=== PATIENT | female | born 1950 | race Caucasian/White ===

== ENCOUNTER → 2016-12-30 | Outpatient (CLI) | payer BC ==
[~2016-12-30] MED LIST: OXYC-57 PO
--- NOTE | 2016-12-30 13:45 | MAMMOGRAPHY REPORT ---
BILATERAL DIGITAL SCREENING MAMMOGRAM WITH CAD: 12/30/2016 CLINICAL HISTORY: Routine screening. Patient has no complaints. TECHNIQUE: Current study was also evaluated with a Computer Aided Detection (CAD) system. Bilatera l CC and MLO views were obtained. COMPARISON: Comparison is made to exams dated: 10/23/2014 mammogram, 09/13/2012 mammogram, and 04/05 mammogram - [facility]. BREAST COMPOSITION: The tissue of both breasts is heterogeneously dense, which may obscure small ma sses. FINDINGS: No suspicious masses, calcifications, or areas of architectural distortion are noted in e ither breast. There has been no significant interval change compared to prior exams. Scattered bila teral benign-appearing calcifications are not significant changed. Asymmetry seen within the left l ateral breast on the cc view is stable dating back to at least the 2006 exam. IMPRESSION: ACR BI-RADS CATEGORY 2: BENIGN There is no mammographic evidence of malignancy. A 1 year screening mammogram is recommended. The p atient will receive written notification of the results. Approximately 10% of breast cancers are not detected with mammography. A negative mammographic repor t should not delay biopsy if a clinically suggestive mass is present. Tracee Voss M.D. ah/:12/30/2016 10:48:53 Roading Engineer: Claire MORGAN(Ryder)(M), [facility] letter sent: Normal 1/2 BI-RADS Code: ACR BI-RADS Category 2: Benign
== END | disposition home or self-care (01) ==
LOC: C.MAMM 10:31
PROVIDERS: ATTEND Family Medicine
DX: Z12.31 Encounter for screening mammogram for malignant neoplasm of breast (principal)

== ENCOUNTER 2017-02-21 17:20 | Emergency (ER) | payer BC ==
[~2017-02-21] VITALS: Ht 157.5 cm; Wt 59.2 kg
[2017-02-21 17:33] VITALS: TEMP 36.5; Ht 157.5 cm; Wt 59.2 kg
[2017-02-21] MEDS ORDERED: OXYCODONE/ACETAMINOPHEN 5-325 TAB PO ONE (17:45)
--- NOTE | 2017-02-21 18:19 | DIAGNOSTIC IMAGING REPORT ---
LEFT WRIST MIN 3 VIEWS ROUTINE CLINICAL HISTORY: FALL trauma. Pain. COMPARISON: None. DISCUSSION: Severe degenerative change first carpometacarpal joint. No well-defined acute bony abnormality at that site. Linear fracture distal radius extending to the articular services. No evidence of dislocation. Small joint effusion.. Moderate soft tissue edema IMPRESSION: Linear nondisplaced fracture distal radius. Electronically signed by: Nhan Velasquez M.D. 02/21/2017 6:17 PM Dictated Date/Time: 02/21/2017 6:15 PM
[2017-02-21] MEDS ORDERED: OXYC-57 PO (18:42)
--- NOTE | 2017-02-21 18:43 | EMERGENCY ROOM VISIT NOTE ---
ED Visit Note First contact with patient: 17:38 Chief Complaint: Fell, Hurt LEFT Wrist History of Present Illness: Patient is a 66-year-old female who presents the emergency Department this evening for evaluation of her LEFT wrist injury. She reports that she was walking her dog on a long leash when her dog took off running and pulled her forward causing her to fall forward. She caught herself on an outstretched LEFT hand resulting in immediate pain in injury. She reports increasing pain into the distal LEFT wrist. She denies any numbness or tingling into the distal tremor. The patient rates her current discomfort as an 8/10. She is tried nothing bspb-ttz-deuzazp for her symptoms to this point. She denies any associated finger pain, hand pain, forearm pain, elbow pain, or shoulder pain. She denies striking her head during the fall. Medications: Reviewed and discussed with the patient. Allergies: No known allergies. PMH: No pertinent past medical history. SHx: Patient is a 66-year-old female who lives locally. ROS: All pertinent positive and negative review of systems are appropriately documented in the History of Present Illness. Physical Exam: VITAL SIGNS - Vital signs and nursing notes were reviewed. GENERAL - 66-year-old female appearing her stated age and in noticeable discomfort throughout the exam. MUSCULOSKELETAL - Active ROM of the LEFT wrist was limited in limited in all directions. Moderate edema noted to the distal radius. No palpable deformities. Moderate tenderness over the RADIAL styloid process. Mild tenderness with squeezing the forearm. No tenderness extending into the carpals. No point- tenderness over the anatomic snuffbox. Moderate pain elicited with supination and pronation of the forearm. NEUROLOGIC - SENSORY: Spinothalamic tract was found to be intact with ability to discriminate sharp versus dull sensation at the level of the LEFT elbow down to the fingertips. No sensory deficits of the dorsal column were appreciated utilizing light touch for evaluation. VASCULAR - Capillary refill was brisk. +3/5 radial pulse palpated. IMAGING: LEFT WRIST MIN 3 VIEWS ROUTINE CLINICAL HISTORY: FALL trauma. Pain. COMPARISON: None. DISCUSSION: Severe degenerative change first carpometacarpal joint. No well-defined acute bony abnormality at that site. Linear fracture distal radius extending to the articular services. No evidence of dislocation. Small joint effusion.. Moderate soft tissue edema IMPRESSION: Linear nondisplaced fracture distal radius. ED Course: Patient was seen and evaluated by myself. Patient was provided an ice pack for comfort. Patient was provided one Percocet for their complaint of pain. X-rays were obtained of the affected wrist. Imaging results as above. Images were discussed and reviewed with the patient who acknowledges understanding. Patient was placed in an Ortho-Glass splint for comfort. She was provided an arm sling for comfort. The patient remain neurovascular intact pre-and post-splinting. Patient was encouraged on following up with orthopedic surgery for definitive management. She was educated on worrisome symptoms for return visit to the emergency department. Patient discharged home in good condition. In the evaluation and treatment of this patient, the following differential diagnoses were considered: Wrist Sprain, Wrist Fracture, Wrist Dislocation, Scapholunate Dissociation, Carpal Fracture, Metacarpal Fracture, Radial Styloid Process Fracture, Ulnar Styloid Process Fracture, or Carpal Tunnel Syndrome. Impression: LEFT Distal Radius Fracture, Fall Discharge Instructions: You have been treated in the Emergency Department for a LEFT Distal Radius Fracture. You have received pain medicine in the emergency department which impairs your ability to operate a vehicle. It is illegal for you to drive after receiving these medicines. You have been prescribed Percocet to be used for pain control. This is a narcotic medication. You cannot drive or consume alcohol while on this medicine. This medicine should only be used for pain that cannot be controlled with usua-ark-dykbcmk pain medicines. For pain control, you can use the following yohy-uhy-nzvbszk medicines (if >12 yo): - Regular strength (325mg/tab) Tylenol (acetaminophen) 2 tabs every 4-6 hours as needed. Do not exceed 12 tablets in a 24 hour period. Avoid taking more than 4 grams (4000 mg) of Tylenol per day. This includes any other sources of acetaminophen you may take on a regular basis. - Regular strength (200 mg/tab) Advil (ibuprofen) 1-2 tabs every 4-6 hours as needed. Do not exceed a dose of 3200 mg per day. If this is a recent injury (<24 hrs), ice can be applied to the area of pain for the first 3 days to help decrease pain and inflammation. You have been provided the number for an Orthopaedic Surgeon. You should call this number as soon as possible to establish a follow-up visit from today's Emergency Department visit. Keep the brace/splint in place until evaluated by Orthopedics. Return to the Emergency Department if your current symptoms worsen despite treatment course outlined above, or if you develop any of the following symptoms : intractable pain despite aforementioned treatment course or new onset of numbness or tingling of the fingers. Current/Historical Medications Scheduled PRN Oxycodone/Acetaminophen 5MG/325MG (Percocet 5MG/325MG), 1-2 TABS PO Q4 PRN for Pain Allergies Coded Allergies: No Known Allergies (Unverified , 02/21/17) Vital Signs Date Time Temp Pulse Resp B/P Pulse Ox O2 Delivery O2 Flow Rate FiO2 02/21/17 19:04 72 18 161/92 96 02/21/17 17:33 36.5 83 18 187/92 97 Room Air Medications Administered Medications (Trade) Dose Ordered Sig/Paxton Route Start Time Stop Time Status Last Admin Dose Admin Oxycodone/ Acetaminophen (Percocet 5-325mg Tab) 1 tab NOW ONCE PO 02/21/17 17:45 02/21/17 17:46 DC 02/21/17 17:52 1 TAB Departure Information Impression Primary Impression: Distal radius fracture, left Additional Impression: Fall Dispostion Home / Self-Care Condition GOOD Prescriptions Oxycodone/Acetaminophen 5MG/325MG (PERCOCET 5MG/325MG) Tab 1-2 TABS PO Q4 Y for Pain, #20 TAB For Initial Treatment Prov: Mars Lawson PA-C 02/21/17 Referrals Shay Meneses M.D. (PCP) Justin Garg M.D. Patient Instructions My [facility] Additional Instructions You have been treated in the Emergency Department for a LEFT Distal Radius Fracture. You have received pain medicine in the emergency department which impairs your ability to operate a vehicle. It is illegal for you to drive after receiving these medicines. You have been prescribed Percocet to be used for pain control. This is a narcotic medication. You cannot drive or consume alcohol while on this medicine. This medicine should only be used for pain that cannot be controlled with qljp-zsm-uxxuiek pain medicines. For pain control, you can use the following iqyf-del-dlovmyv medicines (if >12 yo): - Regular strength (325mg/tab) Tylenol (acetaminophen) 2 tabs every 4-6 hours as needed. Do not exceed 12 tablets in a 24 hour period. Avoid taking more than 4 grams (4000 mg) of Tylenol per day. This includes any other sources of acetaminophen you may take on a regular basis. - Regular strength (200 mg/tab) Advil (ibuprofen) 1-2 tabs every 4-6 hours as needed. Do not exceed a dose of 3200 mg per day. If this is a recent injury (<24 hrs), ice can be applied to the area of pain for the first 3 days to help decrease pain and inflammation. You have been provided the number for an Orthopaedic Surgeon. You should call this number as soon as possible to establish a follow-up visit from today's Emergency Department visit. Keep the brace/splint in place until evaluated by Orthopedics. Return to the Emergency Department if your current symptoms worsen despite treatment course outlined above, or if you develop any of the following symptoms : intractable pain despite aforementioned treatment course or new onset of numbness or tingling of the fingers. Problem Qualifiers Primary Impression: Distal radius fracture, left Encounter type: initial encounter Fracture type: closed Fracture morphology : other intra-articular Qualified Codes: S52.572A - Other intraarticular fracture of lower end of left radius, initial encounter for closed fracture Additional Impression: Fall Encounter type: initial encounter Qualified Codes: W19.XXXA - Unspecified fall, initial encounter
[2017-02-21 19:04] VITALS: BP 161/92; PULSE 72; O2SAT 96
== END 2017-02-21 19:06 | disposition home or self-care (01) ==
LOC: C.EDB 17:21 → C.EDD 19:06
DX: S52.572A Other intraarticular fracture of lower end of left radius, initial encounter for closed fracture (principal); W19.XXXA Unspecified fall, initial encounter

== ENCOUNTER → 2017-11-21 | Outpatient (CLI) | payer BC, OTHER | END | disposition home or self-care (01) | LOC: C.RDSM 11:02 | PROVIDERS: ATTEND Physical Medicine & Rehabilitation Sports Medicine | DX: M25.551 Pain in right hip (principal) ==

== ENCOUNTER → 2018-02-20 | Outpatient (CLI) | payer OTHER ==
[~2018-02-20] MED LIST changes: +FLUO5CRE TOP; +WARF2TAB PO
--- NOTE | 2018-02-20 12:30 | DIAGNOSTIC IMAGING REPORT ---
CHEST 2 VIEWS ROUTINE HISTORY: 67 years-old Female COUGH acute cough COMPARISON: None available TECHNIQUE: PA and lateral views of the chest FINDINGS: Cardiomediastinal and hilar silhouettes are within normal limits. There is no pneumothorax, pleural effusion, focal airspace consolidation or overt pulmonary edema. The bones of the chest appear grossly intact. Degenerative changes are seen within the shoulders and spine. IMPRESSION: No acute process. The above report was generated using voice recognition software. It may contain grammatical, syntax or spelling errors. Electronically signed by: Pete Irvin M.D. 02/20/2018 12:29 PM Dictated Date/Time: 02/20/2018 12:28 PM
== END | disposition home or self-care (01) ==
LOC: C.RADBC 11:10
PROVIDERS: ATTEND Nurse Practitioner Family
DX: Z01.818 Encounter for other preprocedural examination (principal); R05 Cough

== ENCOUNTER 2018-03-01 05:03 | Inpatient (IN) | payer OTHER ==
[2018-02-10 11:37] VITALS: BMI 26.0
--- NOTE | 2018-02-10 11:53 | PAT Medication Instructions ---
Service Date Feb 10, 2018. Current Home Medication List Fluorouracil (Topical) (Efudex), 1 APPLN TOP DAILY Medication Instructions For Your Scheduled Surgery - Hold the following medications 24 hours prior to surgery: Fluorouracil (Topical) (Efudex), 1 APPLN TOP DAILY If you have any questions please call us at [phone] or [phone] or [phone]
[2018-02-10 12:30] LABS: BASO % 0.4 %; BASO ABS # 0.04 K/uL (0-0.2); EOS % 0.5 %; EOS ABS # 0.05 K/uL (0-0.5); HEMATOCRIT 41.8 % (37-47); HEMOGLOBIN 14.3 g/dL (12.0-16.0); IG# 0.01 K/uL (0.00-0.02); LYMPH % 24.8 %; LYMPH ABS # 2.36 K/uL (1.2-3.4); MEAN CELL VOLUME 92.1 fL (80-100); MEAN CORPUSCULAR HEMOGLOBIN 31.5 pg (25-34); MEAN CORPUSCULAR HGB CONC 34.2 g/dl (32-36); MEAN PLATELET VOLUME 10.2 fL (7.4-10.4); MONO % 7.3 %; MONO ABS # 0.69 K/uL (0.11-0.59); NEUT % 66.9 %; NEUT ABS # 6.36 K/uL (1.4-6.5); PLATELET COUNT 244 K/uL (130-400); RED CELL DISTRIBUTION WIDTH CV 12.9 % (11.5-14.5); RED CELL DISTRIBUTION WIDTH SD 43.7 fL (36.4-46.3); WHITE BLOOD COUNT 9.51 K/uL (4.8-10.8)
[2018-02-10 12:38] LABS: INR 0.9 (0.9-1.1); PTT PATIENT 24.8 SECONDS (21.0-31.0)
[2018-02-10 14:09] LABS: CALCIUM 9.1 mg/dl (8.5-10.1); CREATININE 0.81 mg/dl (0.60-1.20); POTASSIUM 4.2 mmol/L (3.5-5.1)
--- NOTE | 2018-02-10 15:39 | History and Physical ---
History & Physical Date of Service Feb 10, 2018. History & Physical CHIEF COMPLAINT: Right hip pain. HISTORY OF PRESENT ILLNESS: This 67-year-old female presents to the clinic today for preoperative history and physical. The patient has a longstanding history of significant right hip pain since approximately 2010, that increases when she transitions from a seated to a standing position when she walks uphill and is affecting her gait significantly states that over the past several months , she has gained 8 pounds because of her decreased activity level from the pain she is experiencing. PAST SURGICAL HISTORY: Colonoscopy and left breast lumpectomy. PAST MEDICAL HISTORY: Hyperlipidemia. FAMILY HISTORY: Mother, deep vein thrombosis, renal disease; father, heart failure; brother, hypertension. ALLERGIES: The patient has no known drug allergies. CURRENT MEDICATIONS: Ibuprofen 600 mg oral tablet 1 tab every 6 hours as needed for pain. SOCIAL HISTORY: The patient denies history of smoking or illicit drug use, states she consumes approximately 5 alcoholic beverages per week. PHYSICAL EXAMINATION: Skin: The patient's skin is normal in appearance. No open skin lesions or discharge. Eyes: Pupils are equal and reactive to light and accommodating. Extraocular movements are intact. Throat: Posterior oropharynx is clear without absence of edema, erythema or exudate. Cardiovascular exam: The patient has a regular rate and rhythm with no murmurs or gallops appreciated. Lungs: Auscultation of lung saleem reveals clear breath sounds throughout with no wheezing, rales or rhonchi. Abdomen is minimally obese, nondistended, nontender with normoactive bowel sounds. Extremities: Right hip, the patient has a positive log roll test, positive straight leg raise test. Negative Stinchfield test. She experiences pain with slightly internal rotation as well as with activity, abduction and adduction of the right lower extremity. She has no tenderness over the anterior lateral posterior hip. There is some mild crepitation with active passive range of motion. Otherwise, she is neurovascularly intact in the right lower extremity. KHOI test is 2-1/2 fists in the right lower extremity. Neurological exam: Cranial nerves 2-12 are intact. No motor or sensory deficit. Psychological/ general exam: The patient is alert and oriented x3 with proper grooming and hygiene. DIAGNOSES: Right hip osteoarthritis. PROCEDURE: Right total hip arthroplasty. RADIOGRAPHIC IMAGING: X-rays of the pelvis shows end-stage osteoarthritis, osteoarthritic changes in the right hip joint. PLAN: The patient is scheduled to undergo this procedure with Dr. Denys Knight at the [facility] on 03/01/18. Risks and complications of the surgery such as infection, bleeding, pain, scarring, nerve and blood vessel damage, weakness, wound problems, stiffness, incomplete relief of symptoms, heart attack, stroke, , fracture, hardware failure, blood clots, embolism were explained to patient. She understands and agrees. However , informed consent to perform the procedure was not obtained. During today's visit, she will sign the consent form with Dr. Knight on the day of surgery. We will also need to obtain preoperative medical clearance from the patient's primary care provider, Dr. Shay Meneses along with a preoperative EKG , CBC with diff, comprehensive metabolic panel, PT, INR, PTT, urinalysis with culture. The patient states she has a preoperative anesthesia clearance appointment at hospital today and will obtain necessary testing at that time. She states she has a walker and other postoperative hip devices that she borrowed from her friend. She will bring a walker with her on the day of surgery. I advised her that she will be provided with a prescription for physical therapy, prescription for Coumadin as well as a prescription for postoperative pain med that she will use upon discharge from the hospital. The patient states she will most likely have in-house home health physical therapy for 2 weeks and then start outpatient physical therapy after her 2-week followup. That follow up was scheduled with Reinaldo Avila on March 16 at 12:45. PDMP was checked today because in regards to prescribing a narcotic after the procedure no red flags were raised that would prevent us from prescribing this upon her discharge from the hospital. The patient was also instructed about classes that she can take in regards to hip and knee replacements at the hospital. She was instructed about the use of antibiotics for dental procedures after the joint arthroplasty and she was also provided with the paperwork to obtain a handicap placard for a 6-month period after the procedure. The patient verbalized understanding of all information provided at today's visit. Thanks for the care she has received and states if she has questions or concerns that should arise prior to her surgery date, she will contact the clinic accordingly.
[~2018-03-01] VITALS: Ht 157.5 cm; Wt 65.0 kg
[2018-03-01] VITALS (9 sets, daily range): BP systolic 104–151; BP diastolic 54–91; PULSE 60–78; TEMP 36.5–36.9; O2SAT 92–98; Ht 157.5 cm; Wt 65.0 kg
[~2018-03-01 05:03] MED LIST changes: -OXYC-57 PO; -WARF2TAB PO
[2018-03-01] MEDS ORDERED: LACTATED RINGER'S 1000ML IV SCH (06:00)
[2018-03-01] MEDS ORDERED: TRANEXAMIC ACID INJ 1,000 MG x 1 Bag Intra-Op IV SCH ×2 (06:00)
[2018-03-01] MEDS ORDERED: ROPIVACAINE 5MG/ML 30 ML 150 MG, BUPIVACAINE 0.5% MPF INJ 30 ML, EpINEphrine HCL INJ 0.... INFIL SCH ×8 (06:00)
[2018-03-01] MEDS ORDERED: CEFAZOLIN 2000MG IV PUSH 15 ML IV SCH (06:00)
[2018-03-01] MEDS ORDERED: ORTHO JOINT ANESTHETIC ONE (06:27)
[2018-03-01] MEDS ORDERED: POVIDONE-IODINE OP SOLN 30 ML BTL ONE (06:27)
--- NOTE | 2018-03-01 06:27 | History & Physical Bridge Note ---
H&P Re-Evaluation Bridge Note: I have examined the patient, reviewed the History & Physical and in the interval since the performance of the History & Physical I have noted the following changes of clinical significance: consent obtained.No changes noted
[2018-03-01] MEDS ORDERED: BUPIVACAINE 0.5 % 5 MG/1 ML PF 10ML VIAL ONE (06:29)
[2018-03-01] MEDS ORDERED: LIDOCAINE HCL 2% 2 ML VIAL (20MG/ML) ONE (06:37)
[2018-03-01] MEDS ORDERED: MIDAZOLAM HCL 1 MG/ML 2ML VIAL ONE (06:37)
[2018-03-01] MEDS ORDERED: PROPOFOL IV EMULSION 10 MG/ML 20 ML VIAL IV ONE ×2 (06:37→07:37)
[2018-03-01] MEDS ORDERED: FENTANYL CITRATE INJ 50 MCG/1 ML 2 ML VIAL ONE ×2 (06:37→08:43)
[2018-03-01] MEDS ORDERED: ONDANSETRON INJ 2 MG/ML 2 ML VIAL ONE ×2 (07:37→08:37)
[2018-03-01] MEDS ORDERED: EpHEDrine SULFATE 50MG/5ML SYR ONE (08:06)
--- NOTE | 2018-03-01 08:18 | [facility] Post Operative Brief Note ---
Immediate Operative Summary Operative Date Mar 01, 2018. Pre-Operative Diagnosis Right Hip Degenerative Joint Disease Post-Operative Diagnosis Same as Preop Procedure(s) Performed Right Total Hip Arthroplasty Uncemented Surgeon Dr. Knight Refinery Operator Alkylation Surgeon(s) Reinaldo Avila PA-C,Deon Stewart Fellow Estimated Blood Loss 200 ml Findings Consistent with Post-Op Diagnosis Fluids (cc crystalloids) 800cc Specimens A. Right Femoral Head Drains None Anesthesia Type General Complication(s) none Disposition Accompanied Pt To Recover: no Disposition: Recovery Room / PACU
[2018-03-01] MEDS ORDERED: HYDROmorphone INJ 2 MG/ML SYR/VIAL ONE (08:29)
[2018-03-01] MEDS ORDERED: HYDROmorphone INJ 0.5 MG/0.5 ML SYR ONE (08:43)
[2018-03-01] MEDS ORDERED: ALUMINUM/MAGNESIUM/SIMETH (MAALOX MAX) 30 ML UDC PO PRN (08:45)
[2018-03-01] MEDS ORDERED: MAGNESIUM HYDROXIDE SUSP 30 ML UDC PO PRN (08:45)
[2018-03-01] MEDS ORDERED: CEFAZOLIN IV 1,000 MG in DEXTROSE 5% 50ML 50 ML IV SCH (08:45)
[2018-03-01] MEDS ORDERED: BISACODYL 10 MG SUPP PR PRN (08:45)
[2018-03-01] MEDS ORDERED: MoRPHine SULFATE 2 MG/ML CARP IV PRN (08:45)
[2018-03-01] MEDS ORDERED: METOCLOPRAMIDE HCL INJ 5 MG/ML 2 ML VIAL IV PRN (08:45)
[2018-03-01] MEDS ORDERED: ONDANSETRON INJ 2 MG/ML 2 ML VIAL IV PRN ×2 (08:45→09:00)
[2018-03-01] MEDS ORDERED: OXYCODONE HCL IR 5 MG TAB (IMMEDIATE RELEASE) PO PRN (08:45)
[2018-03-01] MEDS ORDERED: D5W AND 1/2NSS + 20MEQ KCL 1,000 ML IV SCH ×2 (08:52→11:00)
[2018-03-01] MEDS ORDERED: KETOROLAC TROMETHAMINE 30 MG/ML VIAL ONE (08:54)
--- NOTE | 2018-03-01 08:59 | OPERATIVE REPORT ---
DATE OF OPERATION: 03/01/2018 SURGEON: Denys Knight MD ACADEMIC DIRECTOR: Terry. SECOND ACADEMIC DIRECTOR: BRANDON Avila PREOPERATIVE DIAGNOSIS: Osteoarthritis, right hip. POSTOPERATIVE DIAGNOSIS: Same. OPERATION PERFORMED: Noncemented right total hip replacement. SUMMARY OF IMPLANTS: Size 48 cup acetabular shell sector hole eliminator 6.5 x 25 screw, 32 x 48 neutral liner, one standard Tri-Lock size 1, +9 taper, 32 mm head. ESTIMATED BLOOD LOSS: 200 mL. CRYSTALLOID: 800 mL. DVT prophylaxis with Coumadin. PERIOPERATIVE SITUATION: Medically-cleared female with intractable hip pain with x-rays revealing end-stage disease with significant joint space narrowing. Leg lengths are unequal with this side being short about a centimeter. She does have some back curvature; so it is difficult to get leg lengths exactly. She understands this. DESCRIPTION OF PROCEDURE: The patient was properly identified, site verified, consent verified. 2 g of Ancef confirmed as being given. The patient was placed in right lateral decubitus position. The spinal was not working, so she was then generalized with an LMA. Once the hip was prepped and draped in usual routine fashion, a posterior approach to the hip was then made. Sharp dissection carried to skin and blunt dissection down to the fascia. This was incised under direct vision. The Charnley retractor was then placed. Once the fascia was opened, care taken to protect the sciatic nerve; it was palpated and visualized. It was not dissected. The short external rotators were then released. The capsule was then T'd and the hip was dislocated. The femoral neck was resected; resected to about a 0.5 cm to 3/4 cm above the lesser trochanter. Acetabular exposure was then obtained with a medial retractor and acetabular retractor and the superior sharp Hohmann retractor. Labrum was excised. The remaining capsule and pulvinar was excised. Serial reaming was carried up to a 48 and 48 cup impacted into excellent anteversion and inclination. Trial liner was then seated. The femur was then flexed and internally rotated. The proximal femur prepared with a hand box coverer, canal finder, lateralizing rasp, and serial broaching up to a size 1. The size 1 fit extremely well. Trial reduction with a +9 and a +5; gave the leg lengths better at +9. The hip was very stable. The hip was then dislocated. All trial implants were removed. The wound irrigated with Pulsavac, Betadine Pulsavac; hole eliminator seated, liner seated permanent head and stem seated. The hip reduced. Leg lengths were excellent. Stability was excellent. The wound was then irrigated with Betadine Pulsavac and closed with #2 Vicryl for the fascial layer, 2-0 Vicryl for the subcutaneous layer, and stainless steel clips for skin. Appropriate dressing applied and the patient was transferred to recovery room in satisfactory condition having tolerated the procedure well. Estimated blood loss again 200 mL. DVT prophylaxis with Coumadin. Pathology pending on bone. I attest to the content of the Intraoperative Record and any orders documented therein. Any exception s are noted below.
[2018-03-01] MEDS ORDERED: ATROPINE SULFATE 0.1 MG/ML 5ML SYR IV PRN (09:00)
[2018-03-01] MEDS: DOCUSATE SODIUM 100 MG CAP PO SCH ×2 (09:00→20:39)
[2018-03-01] MEDS ORDERED: HYDROmorphone INJ 2 MG/ML SYR/VIAL IV PRN (09:00)
[2018-03-01] MEDS ORDERED: EpHEDrine SULFATE INJ 50 MG/ML AMP IV PRN (09:00)
[2018-03-01] MEDS: PANTOprazole SOD 40 MG TAB PO SCH (09:00)
[2018-03-01] MEDS: MULTIVITAMIN TAB PO SCH (09:00)
[2018-03-01] MEDS ORDERED: FENTANYL CITRATE INJ 50 MCG/1 ML 2 ML VIAL IV PRN (09:00)
--- NOTE | 2018-03-01 09:06 | DIAGNOSTIC IMAGING REPORT ---
PELVIS 1 OR 2 VIEW ROUTINE CLINICAL HISTORY: s/p right DARIUS (AP pelvis only in pacu) hip replacement COMPARISON: 09/11/2014 DISCUSSION: Anatomic alignment post total right hip arthroplasty. Good contact between prosthetic and underlying bone. Expected soft tissue postoperative changes. IMPRESSION: Anatomic alignment posttotal right hip arthroplasty. The above report was generated using voice recognition software. It may contain grammatical, syntax or spelling errors. Electronically signed by: Nhan Velasquez M.D. 03/01/2018 9:05 AM Dictated Date/Time: 03/01/2018 9:04 AM
--- NOTE | 2018-03-01 09:19 | Anesthesiology Progress Note ---
Anesthesia Post Op Note Date & Time Mar 01, 2018 at 09:17 Vital Signs Pain Intensity: 4 Vital Signs Past 12 Hours Date Time Temp Pulse Resp B/P (MAP) Pulse Ox O2 Delivery O2 Flow Rate FiO2 03/01/18 09:10 81 16 117/62 96 Nasal Cannula 2 03/01/18 09:00 65 12 123/71 98 Nasal Cannula 2 03/01/18 08:50 72 12 130/66 97 Oxymask 10 03/01/18 08:40 70 19 174/82 100 Oxymask 10 03/01/18 08:33 36.7 62 12 158/85 100 Oxymask 10 03/01/18 05:26 36.9 76 20 151/91 97 Room Air Notes Mental Status: alert / awake / arousable, participated in evaluation Pt Amnestic to Procedure: Yes Nausea / Vomiting: adequately controlled Pain: adequately controlled Airway Patency, RR, SpO2: stable & adequate BP & HR: stable & adequate Hydration State: stable & adequate Neuraxial Anesthesia: was administered, sensory block resolved Anesthetic Complications: no major complications apparent Anesthetic Complications: Easy atraumatic placement of spinal with good return of CSF. Unfortunately, failed spinal intraop with conversion to GA with LMA. Full movement of legs and pt with pain on arrival to PACU. Pain responded well to narcotics and patient doing well. No other anesthetic complications.
[2018-03-01] MEDS ORDERED: MoRPHine SULFATE 4 MG/ML 1 ML CARP\\VIAL IV PRN (10:00)
[2018-03-01] MEDS ORDERED: PNEUMOCOCCAL POLYSACCHARIDES 25 MCG/0.5 ML VIAL/SYR IM. ONE (11:15)
[2018-03-01] MEDS ORDERED: PNEUMOCOCCAL ADMINISTRATION CHARGE ONE (11:15)
[2018-03-01] MEDS: FERROUS GLUCONATE 324 MG TAB PO SCH ×2 (12:58→18:04)
[2018-03-01] MEDS: KETOROLAC TROMETHAMINE 15 MG/ML VIAL IV. SCH ×3 (13:04→23:19)
[2018-03-01] MEDS: ACETAMINOPHEN 500 MG TAB PO SCH ×2 (13:05→21:49)
[2018-03-01] MEDS ORDERED: NURSING VERBAL MED ORDER ONE (13:30)
--- NOTE | 2018-03-01 13:31 | PROGRESS NOTE ---
DATE: 03/01/2018 Postop check status post right total replacement. The patient is doing well, has no major issues. She is sitting up, eating and drinking. Vital signs are stable. She is afebrile. She denies chest pain, shortness of breath, fever, chills, nausea, vomiting or headache. Wound dressing clean, dry and intact. Neurovascular check of femoral sciatic nerve is normal. Postop x-ray looks excellent. ASSESSMENT: Doing well. She ate well. She is drinking well. We will Hep-Lock IV. Mobilize. Continue postop care pathway. Start Coumadin.
[2018-03-01] MEDS ORDERED: TRANEXAMIC ACID INJ 1,000 MG in SODIUM CHLORIDE 0.9% 100ML 100 ML IV ONE (15:00)
[2018-03-01] MEDS ORDERED: WARFARIN SOD 5 MG TAB PO ONE (16:00)
[2018-03-01] MEDS: CEFAZOLIN IV 1,000 MG in SYRINGE 0 ML IV SCH ×2 (16:24→23:19)
[2018-03-01] MEDS ORDERED: SENNA 8.6 MG TAB PO SCH (21:00)
[2018-03-02 02:22] VITALS: BP 107/62; PULSE 69; TEMP 36.8; O2SAT 97
[2018-03-02] MEDS: KETOROLAC TROMETHAMINE 15 MG/ML VIAL IV. SCH ×2 (05:59→11:39)
[2018-03-02] MEDS: ACETAMINOPHEN 500 MG TAB PO SCH (05:59)
[2018-03-02] MEDS ORDERED: DEXAMETHASONE INJ 10 MG in SYRINGE 0 ML IV ONE (07:30)
--- NOTE | 2018-03-02 07:32 | PROGRESS NOTE ---
DATE: 03/02/2018 Postop day #1 status post right total hip replacement. The patient is doing well, has no issues. Denies chest pain, shortness of breath, fever, chills, nausea, vomiting or headache. Vital signs are stable. She is afebrile. Abdomen is soft, nontender. Calves nontender. Good femoral sciatic nerve function. Hip located. Leg lengths, good. ASSESSMENT: Doing well; a.m. labs pending. Will discharge today after PT, OT in the morning. Discharge on 4 mg Coumadin if INR is 1.5 or less and 2 mg if INR is greater than 1.5. Check INR on Tuesday. Follow up in 2 weeks for staple removal.
--- NOTE | 2018-03-02 07:38 | DISCHARGE SUMMARY ---
CHIEF COMPLAINT: Right hip pain. HISTORY OF PRESENT ILLNESS: The patient was admitted for elective right total hip replacement. Hospital course has been uneventful. She has done well. Pain is well managed. She is mobilizing well. PAST MEDICAL HISTORY AND PAST SURGICAL HISTORY: Remarkable for colonoscopy, left breast lumpectomy, history of hyperlipidemia. FAMILY HISTORY: DVT in her mother; renal disease in father; heart disease and heart failure in brother, and hypertension. ALLERGIES: None. PREADMISSION MEDICATIONS: Include ibuprofen. She will discontinue that and discharged on p.r.n. pain medication and Coumadin. Keep INR 1.8-2.2. Discharge on 4 mg Coumadin if INR is 1.5 or less and 2 mg if INR is greater than 1.5. Check INR on Tuesday. Postop x-rays look excellent. ASSESSMENT: Doing well status post right total hip replacement. Will discharge after PT, OT today. See Coumadin orders.
[2018-03-02 07:47] LABS: CALCIUM 8.4 mg/dl (8.5-10.1); CREATININE 0.7 mg/dl (0.60-1.20); POTASSIUM 4.3 mmol/L (3.5-5.1)
[2018-03-02 07:50] LABS: BASO % 0.1 %; BASO ABS # 0.02 K/uL (0-0.2); EOS % 0.1 %; EOS ABS # 0.02 K/uL (0-0.5); HEMATOCRIT 34.3 % (37-47); HEMOGLOBIN 11.1 g/dL (12.0-16.0); IG# 0.05 K/uL (0.00-0.02); LYMPH % 13.1 %; LYMPH ABS # 2.06 K/uL (1.2-3.4); MEAN CELL VOLUME 93.5 fL (80-100); MEAN CORPUSCULAR HEMOGLOBIN 30.2 pg (25-34); MEAN CORPUSCULAR HGB CONC 32.4 g/dl (32-36); MEAN PLATELET VOLUME 10.5 fL (7.4-10.4); MONO ABS # 1.73 K/uL (0.11-0.59); NEUT % 75.4 %; NEUT ABS # 11.84 K/uL (1.4-6.5); PLATELET COUNT 249 K/uL (130-400); RED CELL DISTRIBUTION WIDTH SD 44.3 fL (36.4-46.3); WHITE BLOOD COUNT 15.72 K/uL (4.8-10.8)
[2018-03-02 08:09] VITALS: BP 118/76; PULSE 64; TEMP 36.7; O2SAT 96
[2018-03-02] MEDS ORDERED: WARF2TAB PO (08:27)
[2018-03-02] MEDS ORDERED: OXYC-57 PO (08:27)
--- NOTE | 2018-03-02 08:32 | Discharge Instructions ---
Discharge Instructions Date of Service Mar 02, 2018. Admission Reason for Admission: Right Hip Osteoarthritis Discharge Discharge Diagnosis / Problem: Right hip s/p total hip replacement Discharge Goals Goal(s): Decrease discomfort, Improve function, Increase independence Activity Recommendations Activity Limitations: as noted below Lifting Limitations: gradually increase as tolerated May Resume Sexual Activity: after follow-up appointment Shower/Bathe: keep incision dry Driving or Machine Use: No driving until cleared by Dr. Knight Weightbearing Status: Right weightbearing (as tolerated) . Instructions / Follow-Up Instructions / Follow-Up New Medicine: * You will likely be taking one or more of these medicines: 1. Percocet - Take, as directed, when you need it, every four to six hours to control your pain. 2. Coumadin - Thins your blood to lessen the chance of forming a blood clot. The dose of this is different for each person and is based on your blood tests that are done twice a week. * The most common side effects of pain medicine and iron are nausea and constipation. If nausea or constipation is too much of a problem or if you have any questions about your new medicines or doses, call [facility] at . We will try to help you manage these issues. VERY IMPORTANT TO READ AND REVIEW" Blood Clots and Blood Thinning Medicine: * You are given Coumadin during the immediate post-operative period to lessen the risk of blood clots forming in your legs and/or lungs. Coumadin is usually given for six weeks after surgery. * The prescription is for 2 mg tablets. At discharge, you should understand your dose and take it all at the same time every day, preferably after dinner. * You need to get your blood checked 1 - 2 times per week for six weeks, or as directed. * If your dose needs to change, we will call you. Do not take your medication on the day of the blood test until we call you. * If you don't hear from us after your blood draws, keep taking the same dose. Pain: * The immediate post-operative period after hip replacement surgery is often quite painful. * You are given a prescription for pain medicine. You should take it, as directed, when you need it, especially before physical therapy and before going to bed. Pain that interferes with sleep is very common and can last several months. * You will likely need pain medicine for the first two to four weeks. It will not stop all of the pain. The pain will lessen and as you feel better, you may change to milder pain medicine such as Tylenol. * The most common side effects of pain medicine are nausea and constipation, so don't take more than you need. Physical Therapy: * Follow the "Hip Precautions Instructions." * In some cases, the transition social worker at the hospital will arrange to have a therapist come to your house for the first couple of weeks to help you learn these skills. * You need to practice on your own or with the help of a family member as needed. * When you learn these skills, most of the therapy can be done on your own. Home Exercise: * You were shown a series of exercises in the hospital. Do these exercises three to four times each day including the exercises you were shown in physical therapy. Walking: * Get up and walk several times each day. For the first four weeks, try not to stand or walk for more than one hour at a time. If you do stand or walk for more than one hour, you will not hurt anything, but your leg will likely swell. * As you feel comfortable, you may change from the walker or crutches to a cane and then to independent walking. SELF CARE INSTRUCTIONS AFTER TOTAL HIP REPLACEMENT Until the incision and soft tissues around your hip have healed, there is a possibility that the hip prosthesis could dislocate. A. Observe the following precautions to prevent dislocation: 1. Don't bend your hip greater than 90 degrees. 2. Avoid crossing your legs or ankles while standing or lying. 3. Sit with your feet placed 6 inches apart. 4. When sitting, keep your knees below your hips. Sit on a firm surface, avoid deep, soft chairs and couches. Use an elevated toilet seat in the bathroom. 5. Don't bend over at the waist. Use a long handled shoehorn and a sock aid to help you put on your shoes and socks. A ion implant machine operator can help you bead picker objects that are too high or too low to reach. 6. Keep car riding to a minimum for at least one month after surgery. B. Your balance may be shaky for a while. Use crutches or a walker until directed by your doctor. C. Use hand rails when walking on stairs. D. Wear low heeled shoes with non-slip soles. E. Be sure that your floors are free of things that could trip you - throw rugs , electrical cords, small objects. Avoid wet and waxed floors, especially with crutches and canes. F. Try to walk several times a day with rest periods between. G. Continue with all the exercises taught to you in the hospital. Again, make walking a part of your daily routine. VERY IMPORTANT TO READ AND REVIEW A. Take Coumadin, or Lovenox (blood thinning medications) as directed by your doctor. If you are on Coumadin, have a pro-time (blood test) drawn according to your doctor's instructions. This will tell the doctor how well the Coumadin is thinning your blood. B. There are a few signs you need to watch for after you are home. If you notice any of the followin. Increased severe hip pain. Some pain is expected especially when you exercise. 2. Increased swelling in your leg or knee; pain or swelling of the calf muscle in either lower leg. 3. Any fluid drainage from the incision. 4. Shortness of breath or chest pain. TEDs/Elastic Stockings: * The white elastic stockings help limit swelling and prevent blood clots from forming in your legs. The more you wear them, the more they work. * Wear them for six weeks. Prevention of Infection: * Take antibiotics one hour before any dental cleaning, dental work, urological procedure, gastrointestinal procedure or any invasive surgery in order to prevent your new joint from getting infected. * You may get the antibiotics from the doctor performing the procedure or we will call in a prescription to the pharmacy of your choice. Call the office for a prescription at least 2 days prior to your appointment. Things to Watch For: * Drainage from the incision site that occurs more than one week after your surgery. * Severely increased leg pain or swelling. * Increased redness at the incision site. * Fever above 101 degrees Fahrenheit. * Unusual chest pain or shortness of breath. * Unusual pain or burning with urination. Current Hospital Diet Patient's current hospital diet: Regular Diet Discharge Diet Recommended Diet: Regular Diet Procedures Procedures Performed: Right Total Hip Arthroplasty Uncemented Pending Studies Studies pending at discharge: no Medical Emergencies . Who to Call and When: Medical Emergencies: If at any time you feel your situation is an emergency, please call 911 immediately. . Non-Emergent Contact Non-Emergency issues call your: Primary Care Provider, Surgeon Call Non-Emergent contact if: temperature is above 101, wound has increased drainage, wound has increased redness, wound has increased pain, you have any medication questions . "Provider Documentation" section prepared by Reinaldo Avila PA-C. . [place] Drug Monitoring Program Search Results: no issues identified
[2018-03-02] MEDS: FERROUS GLUCONATE 324 MG TAB PO SCH ×2 (08:56→12:04)
[2018-03-02] MEDS: DOCUSATE SODIUM 100 MG CAP PO SCH (08:56)
[2018-03-02] MEDS: PANTOprazole SOD 40 MG TAB PO SCH (08:56)
[2018-03-02] MEDS: MULTIVITAMIN TAB PO SCH ×2 (08:56→09:16)
[2018-03-02 09:12] VITALS: BP 118/76; PULSE 69; TEMP 36.7; O2SAT 96
--- NOTE | 2018-03-02 09:13 | Orthopedic Progress Note ---
Orthopedic Progress Note Date of Service Mar 02, 2018. Subjective Post OP Day: 1 Reports: feeling well, pain controlled w PO medications, Denies: complaints, chest pain, SOB, nausea / vomiting, light headedness, calf pain Objective calves soft nontender, N/V intact, hip located, capillary refill less than 2 sec., dressing C/D/I, incision C/D/I, A&O x3, toes mobile Date Time Temp Pulse Resp B/P (MAP) Pulse Ox O2 Delivery O2 Flow Rate FiO2 03/02/18 08:09 36.7 64 15 118/76 (90) 96 Room Air 03/02/18 07:40 Room Air 03/02/18 02:22 36.8 69 15 107/62 (77) 97 Room Air 03/01/18 23:19 Room Air 03/01/18 22:42 36.8 78 16 107/54 (71) 95 Room Air 03/01/18 19:16 36.8 74 16 133/72 (92) 92 Room Air 03/01/18 16:20 Room Air 03/01/18 15:39 36.5 60 17 104/61 (75) 94 Room Air 03/01/18 12:52 73 16 119/72 (88) 98 Nasal Cannula 2.0 03/01/18 11:48 67 18 107/54 (71) 98 Nasal Cannula 2.0 03/01/18 10:39 61 16 121/73 (89) 96 Nasal Cannula 2.0 03/01/18 10:10 64 16 119/74 (89) 94 Nasal Cannula 2.0 03/01/18 09:40 36.6 70 16 129/74 (92) 92 Nasal Cannula 2.0 03/01/18 09:40 Nasal Cannula 2.0 03/01/18 09:40 92 Nasal Cannula 2.0 03/01/18 09:20 36.7 67 14 118/66 97 Nasal Cannula 2 03/01/18 09:10 81 16 117/62 96 Nasal Cannula 2 Laboratory Results 24 Hours: Test 03/02/18 06:16 White Blood Count 15.72 K/uL Red Blood Count 3.67 M/uL Hemoglobin 11.1 g/dL Hematocrit 34.3 % Mean Corpuscular Volume 93.5 fL Mean Corpuscular Hemoglobin 30.2 pg Mean Corpuscular Hemoglobin Concent 32.4 g/dl Platelet Count 249 K/uL Mean Platelet Volume 10.5 fL Neutrophils (%) (Auto) 75.4 % Lymphocytes (%) (Auto) 13.1 % Monocytes (%) (Auto) 11.0 % Eosinophils (%) (Auto) 0.1 % Basophils (%) (Auto) 0.1 % Neutrophils # (Auto) 11.84 K/uL Lymphocytes # (Auto) 2.06 K/uL Monocytes # (Auto) 1.73 K/uL Eosinophils # (Auto) 0.02 K/uL Basophils # (Auto) 0.02 K/uL Prothromb Time International Ratio 1.0 Prothrombin Time 10.2 SECONDS Assessment & Plan Assessment: s/p right DARIUS 01/30/18 doing well Plan: - Regular diet - PT/OT - WBAT:RLE with hip precautions - Dressing changed, keep dressing in place for two weeks unless soiled - coumadin for chemical VTE prophylaxis - scheduled PT/INR check - completed post-op abx - pain control: no changes to current regimen - discharge today with home nursing -followup in 2 weeks in office
--- NOTE | 2018-03-02 10:45 | Anesthesiology Progress Note ---
Anesthesia Post Op Note Date & Time Mar 02, 2018 at 10:44 Vital Signs Pain Intensity: 1.0 Vital Signs Past 12 Hours Date Time Temp Pulse Resp B/P (MAP) Pulse Ox O2 Delivery O2 Flow Rate FiO2 03/02/18 09:12 36.7 69 15 96 Room Air 03/02/18 08:09 36.7 64 15 118/76 (90) 96 Room Air 03/02/18 07:40 Room Air 03/02/18 02:22 36.8 69 15 107/62 (77) 97 Room Air 03/01/18 23:19 Room Air Notes Pt states spinal block was given but did not work. Reports she was still able to move her feet and that general anesthesia was then given. Reports no problems with anesthesia.
[2018-03-02] MEDS ORDERED: WARFARIN SOD 5 MG TAB PO STA (11:01)
--- NOTE | 2018-03-03 07:47 | [facility] Operative Report ---
Operative Report Operative Date Mar 01, 2018. Pre-Operative Diagnosis Right Hip Degenerative Joint Disease Post-Operative Diagnosis Right hip same as Preop Procedure(s) Performed Right Total Hip Arthroplasty Uncemented Surgeon Dr. Knight [employer] Surgeon(s) Reinaldo Avila PA-C,Deon Stewart Fellow Estimated Blood Loss 200 ml Findings Right hip DJD Fluids 800cc Specimens A. Right Femoral Head Drains None Anesthesia Type General Complication(s) none Disposition no Recovery Room / PACU Indications This 67-year-old white female presented to the office with complaints of intractable right hip pain. She had tried conservative care measures including activity modification and use of assistive devices without lasting improvement. She elected to proceed with surgical intervention after being educated about potential risks and outcomes. Preoperative imaging was obtained. Description of Procedure Patient was administered a spinal anesthetic and then taken to the operating room where she was given general anesthesia. She was prepped and draped in usual sterile fashion. Please see Dr. Knight's operative report for specifics of the procedure. I was present for the entire case from initial patient positioning through final wound closure. Assistance was provided in tissue retraction, hemostasis, trial implant placement, final implant placement , and final wound closure. Patient was taken to the recovery room in satisfactory condition. I attest to the content of the Intraoperative Record and any orders documented therein. Any exceptions are noted below.
== END 2018-03-02 13:10 | disposition home health service (06) | DRG 470 ==
LOC: C.ACU 05:03 → C.3E 06:12 → ENRESERV 09:23
PROVIDERS: ADMIT Physical Medicine & Rehabilitation Sports Medicine; ATTEND Physical Medicine & Rehabilitation Sports Medicine
PROC: 0SR90JA Replacement of Right Hip Joint with Synthetic Substitute, Uncemented, Open Approach (ICD-10-PCS; principal; 2018-03-01 07:00)
DX: M16.11 Unilateral primary osteoarthritis, right hip (principal); Z23 Encounter for immunization